=== PATIENT | female | born 1995 | race Caucasian/White ===

== ENCOUNTER 2019-09-30 03:09 | Emergency (ER) | payer BC ==
[~2019-09-30] VITALS: Ht 167.6 cm; Wt 68.0 kg
[2019-09-30] MEDS ORDERED: SUPER THERAVIT1 EACH PO (03:16)
[2019-09-30] MEDS ORDERED: CIPRO HC OTIC S10 ML OTIC (03:24)
[2019-09-30 03:50] VITALS: BP 112/84
== END 2019-09-30 03:50 | disposition home or self-care (01) ==
LOC: ER 03:09
DX: H60.92 Unspecified otitis externa, left ear (principal)